=== PATIENT | female | born 1980 | race Caucasian/White ===

== ENCOUNTER 2018-01-07 08:40 | Inpatient (IN) | payer OTHER ==
[2018-01-07 09:52] VITALS: BMI 25.8
[2018-01-07] MEDS ORDERED: TUBERCULIN PPD 5 TU/0.1ML SYRINGE (IN PATIENT USE ONLY) ID ONE (10:15)
[2018-01-07 10:50] LABS: BASO % 0.3 % (0-2.0); EOS % 1.1 % (0-4.5); HEMATOCRIT 33.8 % (32.4-45.2); HEMOGLOBIN 11.8 GM/dL (10.7-15.3); LYMPH % 23.1 % (8-40); MCH 30.4 pg (25.7-33.7); MCHC 34.9 g/dl (32.0-36.0); MEAN PLT VOLUME 9.4 fl (7.5-11.1); MONO % 11.5 % (3.8-10.2); PLATELET COUNT 187 K/MM3 (134-434); RBC 3.88 M/mm3 (3.60-5.2); RDW 12.5 % (11.6-15.6); WHITE BLOOD COUNT 7.8 K/mm3 (4.0-10.0)
[2018-01-07] MEDS: DEXTROSE 5%-LACTATED RINGERS 1,000 ML IV SCH (11:00)
[2018-01-07 11:02] LABS: INR 0.96 (0.82-1.09); PROTHROMBIN TIME (PATIENT) 10.8 SEC (9.98-11.88)
[2018-01-07 11:05] LABS: ACTIVATED PTT 25.9 SECONDS (26.9-34.4)
[2018-01-07 11:15] LABS: ANION GAP 9 (8-16); BLOOD UREA NITROGEN 12 mg/dL (7-18); CALCIUM 7.8 mg/dL (8.5-10.1); CHLORIDE 104 mmol/L (98-107); CO2 22 mmol/L (21-32); CREATININE 0.6 mg/dL (0.55-1.02); GLUCOSE,RANDOM 107 mg/dL (74-106); POTASSIUM 4.1 mmol/L (3.5-5.1); SODIUM 135 mmol/L (136-145)
[2018-01-07] MEDS ORDERED: OXYTOCIN 30 UNITS in 0.9% NS 30 UNIT/500 ML INFUS.BAG IVPB ONE (11:21)
[2018-01-07] MEDS: OXYTOCIN 30 UNITS in 0.9% NS 30 UNIT/500 ML INFUS.BAG IVPB SCH (11:40)
--- NOTE | 2018-01-07 12:37 | HP ---
Past Medical History - Primary Care Physician PCP:: Divya Martins - Admission Chief Complaint: 37yo P1 @ @ 40.6wks presents for IOL due to postdates,. no complains, no VB, no LOF, irregular ctx, + FM History of Present Illness: 1. IVF 2. Late transfer of care 3. Flu shot declined 4. TDap received History Source: Patient Limitations to Obtaining History: No Limitations - Past Medical History ...: 4 ...Para: 1 ...Term: 1 ...Spon : 2 ...LMP: 03/27/17 ... Weeks Gestation by Dates: 40.6 ...EDC by Dates: 01/01/18 ...EDC by Sono: 12/28/17 Additional OB History: 2016 female, 9.2lb - Past Surgical History Past Surgical History: Yes: None Hx Myomectomy: No Hx Transabdominal Cerclage: No - Smoking History Smoking history: Never smoked Have you smoked in the past 12 months: No - Alcohol/Substance Use Hx Alcohol Use: No History of Substance Use: reports: None - Social History Usual Living Arrangement: Yes: Alone History of Recent Travel: No Home Medications - Allergies Allergies/Adverse Reactions: Allergies Allergy/AdvReac Type Severity Reaction Status Date / Time No Known Allergies Allergy Verified 12/27/17 22:50 - Home Medications Home Medications: Ambulatory Orders Formula Tablet 1 tab PO DAILY 12/27/17 Review of Systems - Review of Systems Constitutional: reports: No Symptoms Eyes: reports: No Symptoms HENT: reports: No Symptoms Neck: reports: No Symptoms Cardiovascular: reports: No Symptoms Respiratory: reports: No Symptoms Gastrointestinal: reports: No Symptoms Genitourinary: reports: No Symptoms Breasts: reports: No Symptoms Reported Musculoskeletal: reports: No Symptoms Integumentary: reports: No Symptoms Neurological: reports: No Symptoms Endocrine: reports: No Symptoms Hematology/Lymphatic: reports: No Symptoms Psychiatric: reports: No Symptoms Pain Intensity: 1 Physical Exam - Maternity Vital Signs: Vital Signs Temperature 98.2 F 01/07/18 09:36 Pulse Rate 68 01/07/18 11:00 Respiratory Rate 20 01/07/18 11:00 Blood Pressure 115/71 01/07/18 11:00 O2 Sat by Pulse Oximetry (%) Constitutional: Yes: Well Nourished Eyes: Yes: WNL HENT: Yes: WNL Neck: Yes: WNL Cardiovascular: Yes: WNL, Regular Rate and Rhythm Lungs: Clear to auscultation Breast(s): Yes: WNL - Abdominal Exam/OB Fundal Height: 40 (EFW - 9.5lb) Number of Fetuses: Single Presentation: Vertex Contractions: Yes Regularity: Irregular Monitor Mode: External Heart Rate (range): 145 Heart Rate Location: Midline Category: I Accelerations: Uniform Decelerations: None - Vaginal Exam/OB Vaginal Bleediing: No Speculum Exam: No Dilatation (cm): 3 Effacement (%): 75% Amniotic Membrane Status: Intact Presentation: Vertex/Position Station: -3 - Physical Exam Musculoskeletal: Yes: WNL Extremities: Yes: WNL Edema: No Integumentary: Yes: WNL ...Motor Strength: WNL Psychiatric: Yes: WNL, Alert, Oriented - Labs Lab Results: CBC, BMP 01/07/18 10:22 01/07/18 10:22 Assessment/Plan 37yo P1 @ 40.6wks Fetus category 1 Mother stable, adequate pelvis GBS negative, no need for GBS Prophylaxis Admit to L&D NPO, IVF, Admit labs Start Pitocin induction Risk of failed induction, distress discussed Alternative is Elective c/section Patient understands risks, will proceed with IOL
[2018-01-07] MEDS ORDERED: OXYTOCIN 20 UNITS in 0.9% NS 20 UNIT/1,000 ML INFUS.BAG IV ONE (15:00)
[2018-01-07] MEDS ORDERED: LIDOCAINE HCL 1% PRESERVATIVE FREE - 30ML VIAL ONE (15:00)
--- NOTE | 2018-01-07 15:11 | PN ---
Progress Note, Labor Vaginal Exam #1 Labor Exam Date: 01/07/18 Labor Exam Time: 12:00 Heart Rate (range): 140, + accels, no decels, good varriability Dilatation: 3 Effacement (%): 75% Amniotic Membrane Status: Intact (AROM - moderate meconium) Presentation: Vertex/Position Station: -3 Remarks: 37yo P1 @ 40.6wks with Category 1 FHR on Pitocin 4mU/hr for Post term IOL well being reassuring currently declines pain meds adequate pelvis continue monitoring progress of labor
--- NOTE | 2018-01-07 15:50 | PN ---
Progress Note, Labor Vaginal Exam #2 Labor Exam Date: 01/07/18 Labor Exam Time: 15:30 Heart Rate (range): 135' + accels, no decels, Exellent BTB varriabilit Dilatation: 4 Effacement (%): 80% Amniotic Membrane Status: Ruptured (meconium) Presentation: Vertex/Position Station: -3 Remarks: 37yo P1 @ 40.6wks IOL for post term Moderate meconium, but overall FHR reassuring Patient offered an epidural anesthesia and suggested that would be safer since head changing stations possible sign of CPD Patient is not cooperating and not listening to any explanations will continue monitoring IOL, since FHR is reasuring, in early labor
--- NOTE | 2018-01-07 17:36 | PN ---
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 Christopher cord clamped and cut 1st degree laceration repaired with 2-0 Chromic in a usual fashion 500cc of clots expressed fundus firm bladder emptied of 200cc of urine
[2018-01-07] MEDS ORDERED: BENZOCAINE 28 GM HEMORRHOIDAL OINTMENT TP PRN (17:46)
[2018-01-07] MEDS ORDERED: ACETAMINOPHEN 325 MG TABLET (FP) PO PRN (17:46)
[2018-01-07] MEDS ORDERED: METHYLERGONOVINE MALEATE 0.2 MG/1 ML AMP IM PRN (17:46)
[2018-01-07] MEDS ORDERED: WITCH HAZEL 50% (TUCKS) 40 PAD/JAR PAD TP PRN (17:46)
[2018-01-07] MEDS ORDERED: IBUPROFEN 600 MG TABLET (FP) PO PRN (17:46)
[2018-01-07] MEDS ORDERED: BENZOCAINE 20% 57 GM BOTTLE TP PRN (17:46)
[2018-01-07] MEDS ORDERED: BISACODYL 10 MG SUPP.RECT RC PRN (17:46)
[2018-01-07] MEDS ORDERED: OXYTOCIN 20 UNITS in 0.9% NS 20 UNIT/1,000 ML INFUS.BAG IV SCH (18:00)
[2018-01-07 18:33] LABS: VENOUS PC02 44.3 mmHg (38-52); VENOUS PH 7.36 (7.32-7.42); VENOUS PO2 21.4 mmHg (28-48)
[2018-01-07 18:38] LABS: ARTERIAL BLOOD GAS BASE EXCESS -1.1 meq/l (-2-2); ARTERIAL BLOOD GAS PCO2 49.1 mmHg (35-45); ARTERIAL BLOOD GAS pH 7.33 (7.35-7.45)
[2018-01-07 18:40] LABS: ARTERIAL BLOOD GAS PO2 16.8 mmHg (80-100)
[2018-01-07 18:41] LABS: ARTERIAL BLD GAS O2 SATURATION 25.9 % (90-98.9)
[2018-01-07] MEDS: FERROUS SO4 325 MG TABLET (FP) PO SCH (19:21)
[2018-01-08 08:00] LABS: BASO % 0.2 % (0-2.0); EOS % 0.8 % (0-4.5); HEMATOCRIT 27.9 % (32.4-45.2); HEMOGLOBIN 9.7 GM/dL (10.7-15.3); LYMPH % 19.8 % (8-40); MCH 30.1 pg (25.7-33.7); MCHC 34.6 g/dl (32.0-36.0); MEAN CELL VOLUME 86.8 fl (80-96); MEAN PLT VOLUME 9.2 fl (7.5-11.1); MONO % 8.6 % (3.8-10.2); NEUT % 70.6 % (42.8-82.8); PLATELET COUNT 170 K/MM3 (134-434); RBC 3.21 M/mm3 (3.60-5.2); RDW 13.4 % (11.6-15.6)
[2018-01-08] MEDS: FERROUS SO4 325 MG TABLET (FP) PO SCH ×2 (09:03→17:22)
[2018-01-08] MEDS: PRENATAL VITAMINS W/ FOLIC ACID TABLET (FP) PO SCH (09:03)
--- NOTE | 2018-01-08 09:11 | PN ---
Post Progress Note - Subjective Subjective: No complaints Post Day: 1 Type of Delivery: Vital Signs: Vital Signs Temperature 98.5 F 01/08/18 06:24 Pulse Rate 76 01/08/18 06:24 Respiratory Rate 20 01/08/18 06:24 Blood Pressure 109/62 01/08/18 06:24 O2 Sat by Pulse Oximetry (%) Breast Exam: Yes: Soft Uterus: Yes: Fundus Firm, Fundus below umbilicus, Non-tender Abdomen/GI: Yes: Abdomen soft, Tolerating PO Lochia: Yes: Rubra Lochia, amount: Small Extremities: Yes: Calves non-tender Perineum: Yes: Intact Activity: Ambulating - Labs Labs: CBC WBC 12.0 K/mm3 (4.0-10.0) H D 01/08/18 06:00 RBC 3.21 M/mm3 (3.60-5.2) L 01/08/18 06:00 Hgb 9.7 GM/dL (10.7-15.3) L D 01/08/18 06:00 Hct 27.9 % (32.4-45.2) L D 01/08/18 06:00 MCV 86.8 fl (80-96) 01/08/18 06:00 MCH 30.1 pg (25.7-33.7) 01/08/18 06:00 MCHC 34.6 g/dl (32.0-36.0) 01/08/18 06:00 RDW 13.4 % (11.6-15.6) 01/08/18 06:00 Plt Count 170 K/MM3 (134-434) 01/08/18 06:00 MPV 9.2 fl (7.5-11.1) 01/08/18 06:00 Neutrophils % 70.6 % (42.8-82.8) 01/08/18 06:00 Lymphocytes % 19.8 % (8-40) 01/08/18 06:00 Monocytes % 8.6 % (3.8-10.2) 01/08/18 06:00 Eosinophils % 0.8 % (0-4.5) 01/08/18 06:00 Basophils % 0.2 % (0-2.0) 01/08/18 06:00 Assessment/Plan Doing well after . Asymptomatic for anemia care discussed. Plan to d/c home tomorrow
[2018-01-08] MEDS: DEXTROSE 5%-LACTATED RINGERS 1,000 ML IV SCH (19:18)
[2018-01-08] MEDS: OXYTOCIN 30 UNITS in 0.9% NS 30 UNIT/500 ML INFUS.BAG IVPB SCH (19:18)
[2018-01-08] MEDS ORDERED: SENNOSIDES/DOCUSATE COMBO (SENNA PLUS) TABLET (UD) PO PRN (22:00)
--- NOTE | 2018-01-09 07:08 | PN ---
Post Progress Note - Subjective Subjective: Patient without acute complaints. Reports tolerating oral intake without nausea or vomiting. Ambulating without dizziness. Denies fevers or chills. Pain well controlled with oral pain medication. without difficulty. Passing flatus. Post Day: 2 Type of Delivery: Vital Signs: Vital Signs Temperature 98.0 F 01/08/18 22:00 Pulse Rate 85 01/08/18 22:00 Respiratory Rate 18 01/08/18 22:00 Blood Pressure 106/63 01/08/18 22:00 O2 Sat by Pulse Oximetry (%) Breast Exam: Yes: Engorged Uterus: Yes: Fundus Firm, Fundus below umbilicus Abdomen/GI: Yes: Abdomen soft, Passing flatus. No: Abdominal Distention, Tender Lochia: Yes: Serosa Lochia, amount: Small Extremities: Yes: Calves non-tender. No: Edema Activity: Ambulating - Labs Labs: CBC WBC 12.0 K/mm3 (4.0-10.0) H D 01/08/18 06:00 RBC 3.21 M/mm3 (3.60-5.2) L 01/08/18 06:00 Hgb 9.7 GM/dL (10.7-15.3) L D 01/08/18 06:00 Hct 27.9 % (32.4-45.2) L D 01/08/18 06:00 MCV 86.8 fl (80-96) 01/08/18 06:00 MCH 30.1 pg (25.7-33.7) 01/08/18 06:00 MCHC 34.6 g/dl (32.0-36.0) 01/08/18 06:00 RDW 13.4 % (11.6-15.6) 01/08/18 06:00 Plt Count 170 K/MM3 (134-434) 01/08/18 06:00 MPV 9.2 fl (7.5-11.1) 01/08/18 06:00 Neutrophils % 70.6 % (42.8-82.8) 01/08/18 06:00 Lymphocytes % 19.8 % (8-40) 01/08/18 06:00 Monocytes % 8.6 % (3.8-10.2) 01/08/18 06:00 Eosinophils % 0.8 % (0-4.5) 01/08/18 06:00 Basophils % 0.2 % (0-2.0) 01/08/18 06:00 Assessment/Plan 37 yo PPD # 2 s/p , afebrile, vital signs stable, mild asymptomatic anemia, stable for discharge home 1. Patient stable for discharge home today. 2. Patient encouraged to contact MD for: - Severe pain not controlled by oral pain medication - Fevers or chills - Nausea or vomiting, intolerance of oral intake 3. Patient to follow up in office in 4-6 weeks for visit
--- NOTE | 2018-01-09 07:13 | DS ---
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 Vital Signs: Vital Signs Temperature 98.0 F 01/08/18 22:00 Pulse Rate 85 01/08/18 22:00 Respiratory Rate 18 01/08/18 22:00 Blood Pressure 106/63 01/08/18 22:00 O2 Sat by Pulse Oximetry (%) Labs: CBC, BMP 01/08/18 06:00 01/07/18 10:22 Delivery - Delivery Vaginal Delivery: Spontaneous Type of Anesthesia: Local Episiotomy/Laceration: Midline, 1st degree EBL (cc): 500 Delivery, Single - Stages of Labor Date 1st Stage Initiatied: 01/07/18 Time 1st Stage Initiated: 07:00 Date 2nd Stage Initiated: 01/07/18 Time 2nd Stage Initiated: 16:50 Date of Delivery: 01/07/18 Time of Delivery: 17:07 Time Placenta Delivered: 17:12 Placenta: Yes: Spontaneous - 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 Family Present: Yes Name: Anais Christopher Infant Gender: Female Weight: 8 lb 15 oz Position: Right, OA Total Hours ROM (Hrs/Mins): 5 - 1 Minute Total Score: 8 5 Minutes Total Score: 9 - Feeding Plan Initial Plan: Exclusive throughout hospitalization Benefits of Exclusively reinforced: Yes Discharge Summary Reason For Visit: LABOR INDUCTION Current Active Problems Anemia (Acute) Vaginal delivery (Acute) Procedures: Principal: vaginal delivery Other Procedures: induction of labor Hospital Course: patient admitted for IOL underwent successful noted to have mild asymptomatic anemia on PPD # 1 otherwise unremarkable course, fulfilling all criteria for discharge home PPD #2 Condition: Good - Instructions Diet, Activity, Other Instructions: Physical activity Resume your normal everyday activity as tolerated no heavy lifting or exercise until seen by your surgeon. You may walk unlimited jada of and climb stairs. You may resume driving the car when you feel safe and comfortable behind the wheel. No sexual activity as instructed. Diet There are no dietary restrictions. Eat healthy, high-fiber foods. Drink 6 to 8 glasses of liquid each day. This will assist in keeping your bowels are regular. Pain management You may take Tylenol or acetaminophen or Ibuprofen (for example, Motrin, Advil etc.) from my pain prescription medication is ordered should be taken as prescribed for moderate to severe pain. Call MD for any of the following: Severe pain not relieved by medication Fever of 101 or higher Excessive bleeding or drainage on dressing Inability to urinate Referrals: Divya Martins MD [Staff Physician] - Disposition: HOME - Home Medications Comprehensive Discharge Medication List: Ambulatory Orders Formula Tablet 1 tab PO DAILY 12/27/17
[2018-01-09] MEDS: FERROUS SO4 325 MG TABLET (FP) PO SCH (08:16)
[2018-01-09] MEDS: PRENATAL VITAMINS W/ FOLIC ACID TABLET (FP) PO SCH (09:35)
[2018-01-09 10:01] VITALS: BP 103/64; PULSE 91; TEMP 98.7
== END 2018-01-09 11:50 | disposition home or self-care (01) | DRG 775 ==
LOC: JLDR 08:40 → J3W 19:45
PROVIDERS: ADMIT Obstetrics & Gynecology; ATTEND Obstetrics & Gynecology
PROC: 0W8NXZZ Division of Female Perineum, External Approach (ICD-10-PCS; principal; 2018-01-07)
PROC: 10E0XZZ Delivery of Products of Conception, External Approach (ICD-10-PCS; 2018-01-07)
DX: O48.0 Post-term pregnancy (principal); O99.02 Anemia complicating childbirth; D64.9 Anemia, unspecified; Z3A.40 40 weeks gestation of pregnancy; Z37.0 Single live birth
CPT/HCPCS: 36415; 36600; 59409; 80048; 82803; 85025; 85610; 85730; 86593; 86850; 86900; 86901; 87389